=== PATIENT | male | born 1955 | race African-American/Black ===

== ENCOUNTER 2017-08-06 13:53 | Inpatient (IN) | payer OTHER ==
[2017-08-06 15:51] VITALS: BMI 29.0
--- NOTE | 2017-08-06 17:24 | HP ---
CIWA Score - CIWA Score Nausea/Vomitin Muscle Tremors: 3 Anxiety: 3 Agitation: 3 Paroxysmal Sweats: No Perspiration Orientation: 0-Oriented Tacttile Disturbances: 1-Very Mild Itch/Numbness Auditory Disturbances: 0-None Visual Disturbances: 0-None Headache: 0-None Present CIWA-Ar Total Score: 13 Admission [facility] - HPI Chief Complaint: alcohol withdrawal sx Allergies/Adverse Reactions: Allergies Allergy/AdvReac Type Severity Reaction Status Date / Time tuberculin, purified protein Allergy Severe Verified 03/31/15 13:10 deriva maitake mushroom Allergy Intermediate Hives Verified 03/31/15 13:10 History of Present Illness: 61 yo m with h/o chronic alcohoism and cocaine depdnece, smokes 1PPD, requesting inaptient detox from alcohol . PMHX DM, HTN, hyperlipidemia, GERD, anxiety, depression and isnomnia. no h/o seiuzres, no DTs, no si at [facility]. Exam Limitations: No Limitations - Ebola screening Have you traveled outside of the country in the last 21 days: No Have you had contact with anyone from an Ebola affected area: No Have you been sick,other than usual withdrawal symptoms: No Do you have a fever: No - Review of Systems Constitutional: Chills, Diaphoresis, Night Sweats, Changes in sleep, Weight Stable EENT: reports: No Symptoms Reported Respiratory: reports: Cough (smokers cough x2 eeks) Cardiac: reports: Chest Pain (when he coughs only) GI: reports: Constipated, Nausea, Poor Appetite, Poor Fluid Intake, Vomiting, Indigestion, Abdominal cramping : reports: No Symptoms Reported Musculoskeletal: reports: No Symptoms Reported Integumentary: reports: Flushing, Sweating Neuro: reports: Headache, Numbness, Paresthesia, Tingling, Tremors Endocrine: reports: Increased Thirst Hematology: reports: No Symptoms Reported Psychiatric: reports: Judgement Intact, Mood/Affect Appropiate, Orientated x3, Anxious, Depressed Other Systems: Reviewed and Negative Patient History - Patient Medical History Hx Anemia: No Hx Asthma: No Hx Chronic Obstructive Pulmonary Disease (COPD): No Hx Cancer: No Hx Cardiac Disorders: No Hx Congestive Heart Failure: No Hx Hypertension: No Hx Hypercholesterolemia: Yes (ON ATORVASTATIN 40 MG DAILY) Hx Pacemaker: No HX Cerebrovascular Accident: Yes (old cva with right hemiparesis in 2002 ambulation with cane) Hx Seizures: No Hx Dementia: No Hx Diabetes: Yes (Type II-METFORMIN 500 MG BID) Hx Gastrointestinal Disorders: No Hx Liver Disease: No Hx Genitourinary Disorders: No Hx Sexually Transmitted Disorders: Yes (Hx of genital herpes-VALACYCLOVIR 500 MG BID) Hx Renal Disease (ESRD): No Hx Thyroid Disease: No Hx Human Immunodeficiency Virus (HIV): No (NEGATIVE HX) Hx Hepatitis C: No Hx Depression: Yes Hx Suicide Attempt: No (DENIES.no SI a this time) Hx Bipolar Disorder: No Hx Schizophrenia: No - Patient Surgical History Past Surgical History: No Anesthesia Reaction: No - PPD History Previous Implant?: Yes Documented Results: Positive w/o proof Results: CXR(-)01/06/15 PPD to be Administered?: No - Reproductive History Patient is a Female of Child Bearing Age (11 -55 yrs old): No Patient : No - Smoking Cessation Smoking history: Current every day smoker Have you smoked in the past 12 months: Yes Aproximately how many cigarettes per day: 4 Hx Chewing Tobacco Use: No Initiated information on smoking cessation: Yes 'Breaking Loose' booklet given: 08/06/17 - Substance & Tx. History Hx Alcohol Use: Yes Hx Substance Use: Yes Substance Use Type: Alcohol, Cocaine Hx Substance Use Treatment: Yes ([facility] 2016 detox ) - Substances Abused Alcohol Route: Oral Frequency: Daily Amount used: 1/5th whiskey every other day Age of first use: 16 Date of Last Use: 08/05/17 Crack Route: Smoking Frequency: Daily Amount used: $150 daily Age of first use: 33 Date of Last Use: 08/05/17 Family Disease History - Family Disease History Family Disease History: Other: Father (bleeding ulcer) Admission Physical Exam [facility] - Vital Signs Vital Signs: Vital Signs - 24 hr 08/06/17 15:49 Temperature 98 F Pulse Rate 77 Respiratory 20 Rate Blood Pressure 139/93 - Physical General Appearance: Yes: Nourished, Appropriately Dressed, Disheveled, Mild Distress, Tremorous, Irritable, Sweating, Anxious HEENTM: Yes: Within Normal Limits, EOMI, Hearing grossly Normal, Normal ENT Inspection, Normocephalic, Normal Voice, UMU, Pharynx Normal Respiratory: Yes: Within Normal Limits, Chest Non-Tender, Lungs Clear, Normal Breath Sounds, No Respiratory Distress, No Accessory Muscle Use Neck: Yes: Within Normal Limits, No masses,lesions,Nodules, Supple, Trachea in good position Breast: Yes: Breast Exam Deferred Cardiology: Yes: Within Normal Limits, Regular Rhythm, Regular Rate, S1, S2 Abdominal: Yes: Within Normal Limits, Normal Bowel Sounds, Non Tender, Flat, Soft, Increased Bowel Sounds Genitourinary: Yes: Within Normal Limits Back: Yes: Within Normal Limits, Normal Inspection Musculoskeletal: Yes: Within Normal Limits, full range of Motion, Gait Steady, Pelvis Stable, Back pain, Muscle Pain Extremities: Yes: Normal Capillary Refill, Normal Range of Motion, Non-Tender, Tremors Neurological: Yes: contact center consultant II-XII NML intact, Fully Oriented, Alert, Motor Strength 5/5, Normal Response, Depressed Affect Integumentary: Yes: Normal Color, Warm, Diaphoresis, Moist Lymphatic: Yes: Within Normal Limits - Diagnostic (1) Type 2 diabetes mellitus Current Visit: Yes Status: Acute (2) Hyperlipidemia Current Visit: Yes Status: Acute (3) Essential (primary) hypertension Current Visit: Yes Status: Acute (4) Cocaine dependence Current Visit: Yes Status: Acute (5) Nicotine dependence Current Visit: Yes Status: Acute (6) Gastroesophageal reflux disease Current Visit: No Status: Active (7) Alcohol dependence with uncomplicated withdrawal Current Visit: No Status: Acute (8) ambulation with cane Current Visit: No Status: Chronic (9) old cva with right hemiparesis Current Visit: No Status: Chronic [facility] for [facility] Level of Care: Medically Managed Detox Regimen/Protocol: Librium [facility] Breath Alcohol Content Breath Alcohol Content: 0 Urine Drug Screen - Results Drug Screen Negative: No Urine Drug Screen Results: RENE-Cocaine
[2017-08-06] MEDS ORDERED: MAGNESIUM CITRATE 300 ML BOTTLE PO PRN (17:33)
[2017-08-06] MEDS ORDERED: guaiFENesin/D-METHORPHAN HB 10 ML UNIT-DOSE CUPS PO PRN (17:33)
[2017-08-06] MEDS ORDERED: IBUPROFEN 400 MG TABLET (FP) PO PRN (17:33)
[2017-08-06] MEDS ORDERED: MENTHOL/PHENOL 1 EACH UD MM PRN (17:33)
[2017-08-06] MEDS ORDERED: ACETAMINOPHEN 325 MG TABLET (FP) PO PRN (17:33)
[2017-08-06] MEDS ORDERED: P-EPHED 60MG/TRIPROLIDI 2.5MG TABLET PO PRN (17:33)
[2017-08-06] MEDS ORDERED: MAGNESIUM HYDROX 2400MG/30ML ORAL SUSPENSION 30 ML CUP PO PRN (17:33)
[2017-08-06] MEDS ORDERED: NICOTINE POLACRILEX 2 MG GUM BC PRN (17:33)
[2017-08-06] MEDS ORDERED: hydrOXYzine PAMOATE 50 MG CAPSULE (FP) PO PRN (17:33)
[2017-08-06] MEDS ORDERED: chlordiazePOXIDE HCL 25 MG CAPSULE PO PRN (17:33)
[2017-08-06] MEDS ORDERED: LOPERAMIDE HCL 2 MG CAPSULE PO PRN (17:33)
[2017-08-06] MEDS ORDERED: MAG HYDROX/AL HYDROX/SIMETH 30 ML UNIT-DOSE CUP PO PRN (17:33)
[2017-08-06] MEDS ORDERED: chlordiazePOXIDE HCL 25 MG CAPSULE PO ONE (19:15)
[2017-08-06] MEDS: NICOTINE 14 MG/24 HOURS TOPICAL PATCH TD SCH (19:59)
[2017-08-06] MEDS: ASPIRIN 81 MG CHEWABLE TABLETS PO SCH (20:01)
[2017-08-06] MEDS: PANTOPRAZOLE 40 MG TABLET (FP) PO SCH (20:01)
[2017-08-06] MEDS: valACYclovir HCL 500 MG TABLET (FP) PO SCH (22:56)
[2017-08-06] MEDS: ATORVASTATIN CA 40 MG TABLET (FP) PO SCH (22:56)
[2017-08-06] MEDS: MELATONIN 5 MG TABLETS PO PRN (22:56)
[2017-08-06] MEDS: chlordiazePOXIDE HCL 25 MG CAPSULE PO SCH (22:56)
[2017-08-06] MEDS: THIAMINE HCL 100 MG TABLET (FP) PO SCH (22:56)
[2017-08-06 23:00] LABS: URINE APPEARANCE SLCLOUDY; URINE BILIRUBIN NEGATIVE (<2.0 mg/dL); URINE BLOOD NEGATIVE (NEGATIVE); URINE COLOR YELLOW; URINE GLUCOSE (UA) NEGATIVE (NEGATIVE); URINE KETONE NEGATIVE (NEGATIVE); URINE LEUK ESTERASE NEGATIVE (NEGATIVE); URINE NITRITE NEGATIVE (NEGATIVE); URINE UROBILINOGEN NEGATIVE mg/dL (0.2-1.0)
[2017-08-06 23:06] LABS: URINE PROTEIN 1+ (NEGATIVE)
[2017-08-06 23:07] LABS: URINE MUCUS RARE
[2017-08-07] MEDS: chlordiazePOXIDE HCL 25 MG CAPSULE PO SCH ×4 (06:34→22:32)
[2017-08-07] MEDS: metFORMIN HCL 500 MG TABLET (FP) PO SCH ×2 (06:35→17:55)
--- NOTE | 2017-08-07 09:15 | CONSULT ---
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 Substance Abuse History: - Smoking Cessation. Smoking history: Current every day smoker. Have you smoked in the past 12 months: Yes. Aproximately how many cigarettes per day: 4. Hx Chewing Tobacco Use: No. Initiated information on smoking cessation: Yes. 'Breaking Loose' booklet given: 08/06/17. - Substance & Tx. History. Hx Alcohol Use: Yes. Hx Substance Use: Yes. Substance Use Type : Alcohol, Cocaine. Hx Substance Use Treatment: Yes ([place] [id number] detox ). - Substances Abused. Alcohol. Route: Oral. Frequency: Daily. Amount used : 1/5th whiskey every other day. Age of first use: 16. Date of Last Use: 08/05. Crack. Route: Smoking. Frequency: Daily. Amount used: $150 daily. Age of first use: 33. Date of Last Use: 08/05/17 Medical History: DM-2, HTN, Hyperlipidemia, GERD, umbulates with cane, history of old CVA, Psychiatric History: Patient reports no past pstychiatric histor, no medications taking prior to amdission as well. Physical/Sexual Abuse/Trauma History: Denies Additional Comment: Observation. Detox Unit Care Protocol Mental Status Exam - Mental Status Exam Alert and Oriented to: Person Cognitive Function: Fair Patient Appearance: Unkempt Mood: Sad Affect: Mood Congruent Patient Behavior: Cooperative Speech Pattern: Appropriate Voice Loudness: Normal Thought Process: Goal Oriented Thought Disorder: Being Controlled Hallucinations: Denies Suicidal Ideation: Denies Homicidal Ideation: Denies Insight/Judgement: Fair Sleep: Difficulty falling asleep Appetite: Weight gain Muscle strength/Tone: Mild Hypertonicity Gait/Station: Deferred Additional Comments: Observation. Detox Unit Care Protocol Psychiatric Findings - Problem List ([place] 1, 2,3) (1) Nicotine dependence Current Visit: Yes Status: Acute (2) Drug-induced mood disorder Current Visit: Yes Status: Suspected (3) Cocaine dependence Current Visit: Yes Status: Acute (4) Alcohol dependence with uncomplicated withdrawal Current Visit: No Status: Acute - Initial Treatment Plan Initial Treatment Plan: Observation. Detox Unit Care Protocol
[2017-08-07] MEDS: ASPIRIN 81 MG CHEWABLE TABLETS PO SCH (10:25)
[2017-08-07] MEDS: PRENATAL VITAMINS W/ FOLIC ACID TABLET (FP) PO SCH (10:26)
[2017-08-07] MEDS: PANTOPRAZOLE 40 MG TABLET (FP) PO SCH (10:26)
[2017-08-07] MEDS: NICOTINE 14 MG/24 HOURS TOPICAL PATCH TD SCH (10:26)
[2017-08-07] MEDS: valACYclovir HCL 500 MG TABLET (FP) PO SCH ×2 (10:26→22:31)
[2017-08-07 11:13] LABS: HEMATOCRIT 45.8 % (35.4-49); HEMOGLOBIN 15.5 GM/dL (11.7-16.9); MCH 28.3 pg (25.7-33.7); MCHC 33.9 g/dl (32.0-35.9); MEAN CELL VOLUME 83.5 fl (80-96); PLATELET COUNT 209 K/MM3 (134-434); RBC 5.48 M/mm3 (4.00-5.60); RDW 15.1 % (11.9-15.9); WHITE BLOOD COUNT 8.9 K/mm3 (4.0-10.0)
--- NOTE | 2017-08-07 11:25 | EKG ---
Test Reason : Blood Pressure : / mmHG Vent. Rate : 066 BPM Atrial Rate : 066 BPM P-R Int : 144 ms QRS Dur : 084 ms QT Int : 394 ms P-R-T Axes : 069 003 005 degrees QTc Int : 413 ms NORMAL SINUS RHYTHM NONSPECIFIC T WAVE ABNORMALITY ABNORMAL ECG NO PREVIOUS ECGS AVAILABLE Confirmed by SUSU CHISHOLM, GALDINO ([id number]) on 08/07/2017 11:25:18 AM Referred By: Confirmed By:GALDINO CRISTOBAL MD
[2017-08-07 11:26] LABS: CHLORIDE 106 mmol/L (98-107); POTASSIUM 4.8 mmol/L (3.5-5.1); SODIUM 140 mmol/L (136-145)
[2017-08-07 11:37] LABS: ALBUMIN 3.9 g/dl (3.4-5.0); ALK PHOS 63 U/L (45-117); ANION GAP 6 (8-16); BILIRUBIN,TOTAL 0.5 mg/dL (0.2-1.0); BLOOD UREA NITROGEN 14 mg/dL (7-18); CALCIUM 9.1 mg/dL (8.5-10.1); CO2 28 mmol/L (21-32); CREATININE 1.1 mg/dL (0.7-1.3); GLUCOSE,RANDOM 140 mg/dL (74-106); SGOT/AST 18 U/L (15-37); SGPT/ALT 34 U/L (12-78); TOT PROT 7.4 g/dl (6.4-8.2)
--- NOTE | 2017-08-07 11:40 | PN ---
S CIWA - CIWA Score Nausea/Vomitin-No Nausea/No Vomiting Muscle Tremors: 3 Anxiety: 3 Agitation: 3 Paroxysmal Sweats: 1-Minimal Palms Moist Orientation: 0-Oriented Tacttile Disturbances: 1-Very Mild Itch/Numbness Auditory Disturbances: 0-None Visual Disturbances: 0-None Headache: 0-None Present CIWA-Ar Total Score: 11 BHS Progress Note (SOAP) Subjective: sweat tremor anxiety restlessness trouble sleeping Objective: 08/07/17 11:39 Vital Signs Temperature 97.7 F 08/07/17 09:56 Pulse Rate 64 08/07/17 09:56 Respiratory Rate 16 08/07/17 09:56 Blood Pressure 128/86 08/07/17 09:56 O2 Sat by Pulse Oximetry (%) Laboratory Last Values POC Glucometer 126 UNITS (80-120) 08/07/17 06:15 Urine Color Yellow 08/06/17 22:48 Urine Appearance Slcloudy 08/06/17 22:48 Urine pH 5.0 (5.0-8.0) 08/06/17 22:48 Ur Specific [place] 1.025 (1.001-1.035) 08/06/17 22:48 Urine Protein 1+ (NEGATIVE) H 08/06/17 22:48 Urine Glucose (UA) Negative (NEGATIVE) 08/06/17 22:48 Urine Ketones Negative (NEGATIVE) 08/06/17 22:48 Urine Blood Negative (NEGATIVE) 08/06/17 22:48 Urine Nitrite Negative (NEGATIVE) 08/06/17 22:48 Urine Bilirubin Negative (<2.0 mg/dL) 08/06/17 22:48 Urine Urobilinogen Negative mg/dL (0.2-1.0) 08/06/17 22:48 Ur Leukocyte Esterase Negative (NEGATIVE) 08/06/17 22:48 Urine WBC (Auto) 1 /hpf (3-5) 08/06/17 22:48 Urine RBC (Auto) 3 /hpf (0-3) 08/06/17 22:48 Urine Mucus Rare 08/06/17 22:48 lab noted Assessment: 08/07/17 11:40 withdrawal sx Plan: continue detox
[2017-08-07] MEDS: THIAMINE HCL 100 MG TABLET (FP) PO SCH (22:31)
[2017-08-07] MEDS: MELATONIN 5 MG TABLETS PO PRN (22:31)
[2017-08-07] MEDS: ATORVASTATIN CA 40 MG TABLET (FP) PO SCH (22:32)
[2017-08-08] MEDS: chlordiazePOXIDE HCL 25 MG CAPSULE PO SCH ×3 (06:54→17:37)
--- NOTE | 2017-08-08 09:58 | PN ---
S CIWA - CIWA Score Nausea/Vomitin Muscle Tremors: 3 Anxiety: 3 Agitation: 3 Paroxysmal Sweats: 1-Minimal Palms Moist Orientation: 0-Oriented Tacttile Disturbances: 1-Very Mild Itch/Numbness Auditory Disturbances: 0-None Visual Disturbances: 0-None Headache: 0-None Present CIWA-Ar Total Score: 14 BHS Progress Note (SOAP) Subjective: nausea, sweats, interrupted sleep,a nxiety, trmeors Objective: 08/08/17 09:57 Vital Signs - 24 hr 08/07/17 08/07/17 08/07/17 14:23 18:00 22:00 Temperature 98.2 F 98.1 F 97.9 F Pulse Rate 78 61 84 Respiratory 16 18 16 Rate Blood Pressure 146/96 112/66 139/88 08/08/17 08/08/17 08/08/17 00:30 03:30 07:18 Temperature 97.7 F Pulse Rate 59 L Respiratory 18 18 18 Rate Blood Pressure 114/76 Laboratory Tests 08/06/17 08/07/17 08/07/17 22:48 06:15 07:30 WBC 8.9 RBC 5.48 Hgb 15.5 Hct 45.8 MCV 83.5 MCH 28.3 MCHC 33.9 RDW 15.1 Plt Count 209 MPV 9.0 Sodium Potassium Chloride Carbon Dioxide Anion Gap BUN Creatinine Creat Clearance w eGFR POC Glucometer 126 Random Glucose Calcium Total Bilirubin AST ALT Alkaline Phosphatase Total Protein Albumin Urine Color Yellow Urine Appearance Slcloudy Urine pH 5.0 Ur Specific [place] 1.025 Urine Protein 1+ H Urine Glucose (UA) Negative Urine Ketones Negative Urine Blood Negative Urine Nitrite Negative Urine Bilirubin Negative Urine Urobilinogen Negative Ur Leukocyte Esterase Negative Urine WBC (Auto) 1 Urine RBC (Auto) 3 Urine Mucus Rare RPR Titer HIV 1&2 Antibody Screen HIV P24 Antigen 08/07/17 08/07/17 08/07/17 07:30 07:30 07:30 WBC RBC Hgb Hct MCV MCH MCHC RDW Plt Count MPV Sodium 140 Potassium 4.8 Chloride 106 Carbon Dioxide 28 Anion Gap 6 L BUN 14 D Creatinine 1.1 Creat Clearance w eGFR > 60 POC Glucometer Random Glucose 140 H Calcium 9.1 Total Bilirubin 0.5 D AST 18 ALT 34 Alkaline Phosphatase 63 Total Protein 7.4 Albumin 3.9 Urine Color Urine Appearance Urine pH Ur Specific [place] Urine Protein Urine Glucose (UA) Urine Ketones Urine Blood Urine Nitrite Urine Bilirubin Urine Urobilinogen Ur Leukocyte Esterase Urine WBC (Auto) Urine RBC (Auto) Urine Mucus RPR Titer Nonreactive HIV 1&2 Antibody Screen Negative HIV P24 Antigen Negative 08/08/17 06:53 WBC RBC Hgb Hct MCV MCH MCHC RDW Plt Count MPV Sodium Potassium Chloride Carbon Dioxide Anion Gap BUN Creatinine Creat Clearance w eGFR POC Glucometer 131 Random Glucose Calcium Total Bilirubin AST ALT Alkaline Phosphatase Total Protein Albumin Urine Color Urine Appearance Urine pH Ur Specific [place] Urine Protein Urine Glucose (UA) Urine Ketones Urine Blood Urine Nitrite Urine Bilirubin Urine Urobilinogen Ur Leukocyte Esterase Urine WBC (Auto) Urine RBC (Auto) Urine Mucus RPR Titer HIV 1&2 Antibody Screen HIV P24 Antigen Assessment: 08/08/17 09:57 withdraal sx, cont detox, fluids, encourage ambulation
[2017-08-08] MEDS: ASPIRIN 81 MG CHEWABLE TABLETS PO SCH (11:03)
[2017-08-08] MEDS: valACYclovir HCL 500 MG TABLET (FP) PO SCH ×2 (11:04→22:35)
[2017-08-08] MEDS: PRENATAL VITAMINS W/ FOLIC ACID TABLET (FP) PO SCH (11:04)
[2017-08-08] MEDS: PANTOPRAZOLE 40 MG TABLET (FP) PO SCH (11:04)
[2017-08-08] MEDS: NICOTINE 14 MG/24 HOURS TOPICAL PATCH TD SCH (12:35)
[2017-08-08] MEDS: metFORMIN HCL 500 MG TABLET (FP) PO SCH ×2 (16:37→17:39)
[2017-08-08] MEDS: VITAMINS A AND D TOPICAL OINTMENT 60 GM TUBE TP SCH ×2 (18:15→23:38)
[2017-08-08] MEDS: MELATONIN 5 MG TABLETS PO PRN (22:34)
[2017-08-08] MEDS: THIAMINE HCL 100 MG TABLET (FP) PO SCH (22:35)
[2017-08-08] MEDS: chlordiazePOXIDE 5 MG CAPSULE PO SCH (22:35)
[2017-08-08] MEDS: ATORVASTATIN CA 40 MG TABLET (FP) PO SCH (22:35)
[2017-08-09] MEDS: chlordiazePOXIDE 5 MG CAPSULE PO SCH ×3 (05:45→18:01)
[2017-08-09] MEDS: VITAMINS A AND D TOPICAL OINTMENT 60 GM TUBE TP SCH ×3 (05:46→18:05)
[2017-08-09] MEDS: metFORMIN HCL 500 MG TABLET (FP) PO SCH ×2 (06:28→18:00)
[2017-08-09] MEDS: PANTOPRAZOLE 40 MG TABLET (FP) PO SCH (10:30)
[2017-08-09] MEDS: PRENATAL VITAMINS W/ FOLIC ACID TABLET (FP) PO SCH (10:30)
[2017-08-09] MEDS: ASPIRIN 81 MG CHEWABLE TABLETS PO SCH (10:30)
[2017-08-09] MEDS: NICOTINE 14 MG/24 HOURS TOPICAL PATCH TD SCH (10:30)
[2017-08-09] MEDS: valACYclovir HCL 500 MG TABLET (FP) PO SCH ×2 (10:31→22:20)
--- NOTE | 2017-08-09 17:20 | PN ---
BHS Progress Note (SOAP) Subjective: Sleep disturbance Shakes sweats Objective: 08/09/17 17:18 A & O x 3, Anxious Vital Signs Temperature 98.2 F 08/09/17 14:31 Pulse Rate 74 08/09/17 14:31 Respiratory Rate 20 08/09/17 14:31 Blood Pressure 125/85 08/09/17 14:31 O2 Sat by Pulse Oximetry (%) Assessment: 08/09/17 17:19 withdrawal sx Plan: Continue detox D/c in a.m
[2017-08-09] MEDS: THIAMINE HCL 100 MG TABLET (FP) PO SCH (22:20)
[2017-08-09] MEDS: chlordiazePOXIDE HCL 10 MG CAPSULE PO SCH (22:20)
[2017-08-09] MEDS: ATORVASTATIN CA 40 MG TABLET (FP) PO SCH (22:20)
[2017-08-09 23:10] VITALS: PULSE 67; TEMP 97.9
[2017-08-10] MEDS: chlordiazePOXIDE HCL 10 MG CAPSULE PO SCH (05:56)
[2017-08-10] MEDS: VITAMINS A AND D TOPICAL OINTMENT 60 GM TUBE TP SCH ×2 (05:56)
[2017-08-10 06:24] VITALS: BP 115/75
[2017-08-10] MEDS: metFORMIN HCL 500 MG TABLET (FP) PO SCH (06:28)
[2017-08-10] MEDS: ASPIRIN 81 MG CHEWABLE TABLETS PO SCH (09:50)
[2017-08-10] MEDS: valACYclovir HCL 500 MG TABLET (FP) PO SCH (09:50)
[2017-08-10] MEDS: PRENATAL VITAMINS W/ FOLIC ACID TABLET (FP) PO SCH (09:50)
--- NOTE | 2017-08-10 13:01 | DS ---
[facility] Detox Discharge Summary Admission Date: 08/06/17 Discharge Date: 08/10/17 - History Present History: Alcohol Dependence Additional Comments: 61 years old male admitted on 08/06/17 for alcohol withdrawal sx completed alcohol detox regimen tolerated well denies alcohol withdrawal sx alert oriented x 3 no acute distress agrees to go to [facility] for aftercare - Physical Exam Results Vital Signs: Vital Signs Temperature 97.9 F 08/10/17 06:00 Pulse Rate 67 08/10/17 06:00 Respiratory Rate 18 08/10/17 06:00 Blood Pressure 115/75 08/10/17 06:00 O2 Sat by Pulse Oximetry (%) Pertinent Admission Physical Exam Findings: Vital Signs Temperature 97.9 F 08/10/17 06:00 Pulse Rate 67 08/10/17 06:00 Respiratory Rate 18 08/10/17 06:00 Blood Pressure 115/75 08/10/17 06:00 O2 Sat by Pulse Oximetry (%) Laboratory Last Values WBC 8.9 K/mm3 (4.0-10.0) 08/07/17 07:30 RBC 5.48 M/mm3 (4.00-5.60) 08/07/17 07:30 Hgb 15.5 GM/dL (11.7-16.9) 08/07/17 07:30 Hct 45.8 % (35.4-49) 08/07/17 07:30 MCV 83.5 fl (80-96) 08/07/17 07:30 MCH 28.3 pg (25.7-33.7) 08/07/17 07:30 MCHC 33.9 g/dl (32.0-35.9) 08/07/17 07:30 RDW 15.1 % (11.9-15.9) 08/07/17 07:30 Plt Count 209 K/MM3 (134-434) 08/07/17 07:30 MPV 9.0 fl (7.5-11.1) 08/07/17 07:30 Sodium 140 mmol/L (136-145) 08/07/17 07:30 Potassium 4.8 mmol/L (3.5-5.1) 08/07/17 07:30 Chloride 106 mmol/L (98-107) 08/07/17 07:30 Carbon Dioxide 28 mmol/L (21-32) 08/07/17 07:30 Anion Gap 6 (8-16) L 08/07/17 07:30 BUN 14 mg/dL (7-18) D 08/07/17 07:30 Creatinine 1.1 mg/dL (0.7-1.3) 08/07/17 07:30 Creat Clearance w eGFR > 60 (>60) 08/07/17 07:30 POC Glucometer 123 UNITS (80-120) 08/10/17 06:01 Random Glucose 140 mg/dL (74-106) H 08/07/17 07:30 Calcium 9.1 mg/dL (8.5-10.1) 08/07/17 07:30 Total Bilirubin 0.5 mg/dL (0.2-1.0) D 08/07/17 07:30 AST 18 U/L (15-37) 08/07/17 07:30 ALT 34 U/L (12-78) 08/07/17 07:30 Alkaline Phosphatase 63 U/L (45-117) 08/07/17 07:30 Total Protein 7.4 g/dl (6.4-8.2) 08/07/17 07:30 Albumin 3.9 g/dl (3.4-5.0) 08/07/17 07:30 Urine Color Yellow 08/06/17 22:48 Urine Appearance Slcloudy 08/06/17 22:48 Urine pH 5.0 (5.0-8.0) 08/06/17 22:48 Ur Specific [place] 1.025 (1.001-1.035) 08/06/17 22:48 Urine Protein 1+ (NEGATIVE) H 08/06/17 22:48 Urine Glucose (UA) Negative (NEGATIVE) 08/06/17 22:48 Urine Ketones Negative (NEGATIVE) 08/06/17 22:48 Urine Blood Negative (NEGATIVE) 08/06/17 22:48 Urine Nitrite Negative (NEGATIVE) 08/06/17 22:48 Urine Bilirubin Negative (<2.0 mg/dL) 08/06/17 22:48 Urine Urobilinogen Negative mg/dL (0.2-1.0) 08/06/17 22:48 Ur Leukocyte Esterase Negative (NEGATIVE) 08/06/17 22:48 Urine WBC (Auto) 1 /hpf (3-5) 08/06/17 22:48 Urine RBC (Auto) 3 /hpf (0-3) 08/06/17 22:48 Urine Mucus Rare 08/06/17 22:48 RPR Titer Nonreactive (NONREACTIVE) 08/07/17 07:30 HIV 1&2 Antibody Screen Negative 08/07/17 07:30 HIV P24 Antigen Negative 08/07/17 07:30 lab noted - Treatment Hospital Course: Detox Protocol Followed, Detoxed Safely, Responded well, Discharged Condition Good, Rehab Referral Accepted Patient has Accepted a Rehab Referral to: [facility] - Medication Discharge Medications: Ambulatory Orders Aspirin [ASA -] 81 mg PO DAILY 03/26/12 Omeprazole [Prilosec (RX)] 40 mg PO DAILY 03/26/12 Atorvastatin Ca [Lipitor] 40 mg PO HS #30 tablet 08/10/17 Valacyclovir HCl [Valtrex -] 500 mg PO BID #60 tablet 08/10/17 metFORMIN HCL [Glucophage -] 500 mg PO BID #60 tablet 08/10/17 - Diagnosis (1) Alcohol dependence with uncomplicated withdrawal Status: Acute (2) Essential (primary) hypertension Status: Chronic (3) Nicotine dependence Status: Acute Qualifiers: Nicotine product type: cigarettes Substance use status: in withdrawal Qualified Code(s): F17.213 - Nicotine dependence, cigarettes, with withdrawal (4) PPD positive Status: Resolved (5) Type 2 diabetes mellitus Status: Chronic Qualifiers: Diabetes mellitus termite control service representative insulin use: without termite control service representative use Diabetes mellitus complication status: without complication Qualified Code(s): E11.9 - Type 2 diabetes mellitus without complications - AMA Did Patient Leave Against Medical Advice: No
== END 2017-08-10 10:05 | disposition home or self-care (01) | DRG 774 ==
LOC: YASAS 13:53 → Y6N 19:03
PROVIDERS: ADMIT Internal Medicine; ATTEND Internal Medicine
PROC: HZ2ZZZZ Detoxification Services for Substance Abuse Treatment (ICD-10-PCS; principal; 2017-08-06)
DX: F10.230 Alcohol dependence with withdrawal, uncomplicated (principal); F14.20 Cocaine dependence, uncomplicated; F17.210 Nicotine dependence, cigarettes, uncomplicated; F19.24 Other psychoactive substance dependence with psychoactive substance-induced mood disorder; I10 Essential (primary) hypertension; E78.5 Hyperlipidemia, unspecified; E78.00 Pure hypercholesterolemia, unspecified; E11.9 Type 2 diabetes mellitus without complications; Z79.84 Long term (current) use of oral hypoglycemic drugs; R76.11 Nonspecific reaction to tuberculin skin test without active tuberculosis; Z86.19 Personal history of other infectious and parasitic diseases; I69.851 Hemiplegia and hemiparesis following other cerebrovascular disease affecting right dominant side; R26.89 Other abnormalities of gait and mobility; Z99.89 Dependence on other enabling machines and devices; Z88.7 Allergy status to serum and vaccine; Z91.018 Allergy to other foods
CPT/HCPCS: 36415; 80053; 81003; 81015; 82962; 85027; 86593; 87389; 93005; 93010